=== PATIENT | female | born 1975 | race Caucasian/White ===

== ENCOUNTER 2018-12-27 04:51 | Emergency (ER) | payer SELFPAY ==
[~2018-12-27] VITALS: Wt 54.4 kg
[2018-12-27 04:57] VITALS: BP 132/74; PULSE 97; RESP 20
--- NOTE | 2018-12-27 05:15 | ERD ---
ER Documentation Chief Complaint Chief Complaint COUGH, ANDERSON X'S 2 DAYS HPI This is a 43-year-old female who presents here in the emergency department with complaints of productive cough for about 3 days, nasal congestion, felt like having fever at home. LMP: 3 weeks ago. . Denies headache, head injury, loss of consciousness, dizziness, neck pain, neck stiffness, throat pain, difficulty swallowing, difficulty breathing lying flat, shoulder pain, chest pain, back pain, abdominal pain, nausea, vomiting, constipation, diarrhea, urinary symptoms, or possibility being , loss of bowel and bladder control, trauma, injury, falls, difficulty walking due to pain, numbness or tingling sensation, calf pain, recent travel, recent major surgery in the last 3 weeks, calf pain, recent long travel, recent exposure to any illness, recent antibiotic use in the last 3 months, chills, seizures. Past medical history: Denies. Surgical history: Denies. Social: Denies smoking, use of alcoholic beverages, use of illegal drugs. ROS All systems reviewed and are negative except as per history of present illness. Medications Home Meds Active Scripts Ondansetron Hcl* (Zofran*) 4 Mg Tablet, 4 MG PO Q8H PRN for NAUSEA AND/OR VOMITING, #30 TAB Prov:MIKALA SANDERS 12/27/18 Benzonatate* (Tessalon Perle*) 100 Mg Capsule, 100 MG PO Q8H PRN for COUGH, #20 CAP Prov:PASILAMIKALA ACEVES 12/27/18 Amoxicillin/Potassium Clav (Amox-Clav 875-125 mg Tablet) 875-125 mg Tab, 1 TAB PO BID for 10 Days, #20 TAB Prov:PASILAMIKALA ACEVES 12/27/18 Prednisone* (Prednisone*) 20 Mg Tab, 60 MG PO DAILY for 5 Days, TAB Prov:MIKALA SANDERS 12/27/18 Ibuprofen* (Motrin*) 600 Mg Tab, 600 MG PO Q6H PRN for PAIN AND OR ELEVATED TEMP, #30 TAB Prov:PASILAMIKALA ACEVES F 12/27/18 Allergies Allergies: Coded Allergies: acetaminophen (Verified Adverse Reaction, Intermediate, nausea, vomiting, 06/28/16) hydrocodone (Verified Adverse Reaction, Intermediate, nausea, vomiting, 06/28/16) PMhx/Soc History of Surgery: No Anesthesia Reaction: No Hx Neurological Disorder: No Hx Respiratory Disorders: No Hx Cardiac Disorders: No Hx Psychiatric Problems: No Hx Miscellaneous Medical Probl: Yes (meningitis ) Hx Alcohol Use: No Hx Substance Use: No Hx Tobacco Use: No Physical Exam Vitals Physical Exam Const: No acute distress Head: Atraumatic Eyes: Normal Conjunctiva ENT: Normal External Ears, Nose and Mouth. Bilateral ears: TMs are not erythematous. No bleeding. No discharge. No hearing loss. No mastoid tenderness. Nose: There is frontal and maxillary sinus tenderness palpation. Throat: Uvula is midline and nondisplaced. Tonsils are +1 bilaterally with mild redness but no exudates. Tolerating secretions. Patent airway. Speaks full and clear sentences. No tripoding. No nuchal rigidity. No signs of meningeal irritation. Neck: Full range of motion. No meningismus. Resp: Clear to auscultation bilaterally. No accessory muscle use in breathing. Cardio: Regular rate and rhythm, no murmurs Abd: Soft, non tender, non distended. Normal bowel sounds Skin: No petechiae or rashes Back: No midline or flank tenderness Ext: No cyanosis, or edema Neur: Awake and alert. No neurological deficits.. Psych: Normal Mood and Affect Results 24 hrs Current Medications Medications Dose Sig/Emmanuelle Start Time Status Last (Trade) Ordered Route PRN Stop Time Admin Dose Reason Admin Ibuprofen 600 mg ONCE ONCE 12/27/18 DC 12/27/18 (Motrin) PO 05:30 05:26 12/27/18 05:31 Procedures/MDM Diagnostic tests: Clinical exam. Treatment: Not applicable. Re-evaluation: Not in distress. Differential diagnosis I have low suspicion for sepsis, meningitis, mastoiditis, peritonsillar abscess, pneumonia, severe dehydration. Final diagnosis: Bronchitis. Sinusitis. Prescription: Augmentin. Motrin. Prednisone. Tessalon Perles. Follow-up with PCP in the next 24-48 hours. Come back here in the emergency department for any new symptoms or any worsening symptoms. All questions and concerns were answered. Patient and family members verbalized understanding and agreed with plan of care. Hemodynamically stable on discharge. Departure Diagnosis: Primary Impression: Cough Additional Impressions: Bronchitis Sinusitis Condition: Stable Additional Instructions: Follow-up with PCP in the next 24-48 hours. Come back here in the emergency department for any new symptoms or any worsening symptoms. MIKALA SANDERS Dec 27, 2018 05:15
[2018-12-27] MEDS ORDERED: IBUP-1542 PO (05:17)
[2018-12-27] MEDS ORDERED: AMOX1TAB10 PO (05:17)
[2018-12-27] MEDS ORDERED: BENZ-6 PO (05:17)
[2018-12-27] MEDS ORDERED: PRED20TA PO (05:17)
[2018-12-27] MEDS ORDERED: ONDA4TAB8 PO (05:19)
[2018-12-27] MEDS ORDERED: IBUPROFEN 600 MG TAB PO ONE (05:30)
== END 2018-12-27 05:30 | disposition home or self-care (01) ==
LOC: FTE 04:51
DX: J40 Bronchitis, not specified as acute or chronic (principal); J32.9 Chronic sinusitis, unspecified
CPT/HCPCS: 99283